=== PATIENT | female | born 1965 | race Caucasian/White ===

== ENCOUNTER 2023-11-15 15:55 | Emergency (ER) | payer OTHER, SELFPAY ==
--- NOTE | ~2023-11-15 | CT_ITS ---
EXAMINATION: CT brain wo con DATE: 11/15/2023 19:01 INDICATION: Hallucinations. TECHNIQUE: Computed tomography (CT) of the head was performed without intravenous contrast. The mA wa s adjusted according to patient size. Iterative reconstruction technique was employed. The dose-lengt h product was 605.33 mGy-cm. COMPARISON: Head CT 10/10/18 FINDINGS: There is no intracranial hemorrhage, acute infarction, or abnormal intracranial mass lesion . The ventricles are normal in size. The orbits are normal. There is mucosal thickening in the parana marco sinuses. There is thickening and sclerosis of the pan of left maxillary sinus, consistent with chronic sinusitis. The mastoid air cells are normal. IMPRESSION: 1. Normal brain. 2. Chronic sinusitis. Reviewed, dictated and finalized at location E.
--- NOTE | ~2023-11-15 | XR_ITS ---
EXAMINATION: XR chest 2V DATE: 11/15/2023 18:44 INDICATION: Fever. Leukocytosis. TECHNIQUE: Frontal and lateral views of the chest were obtained. COMPARISON: Chest 2 views 11/25/2009 FINDINGS: There is no pneumonia, pleural effusion, or pneumothorax. The heart size is normal. There i s mild chronic anterior wedging of T12-L2 vertebral bodies. IMPRESSION: 1. No acute cardiopulmonary disease. Reviewed, dictated and finalized at location E.
[2023-11-15 15:58] VITALS: BP 115/73; PULSE 96; RESP 16; TEMP 36.6; O2SAT 100
[2023-11-15 16:31] LABS: Basophils Absolute Auto 0.1 K/mm3 (0.0-0.1); Basophils Percent Auto 0.3 % (0.2-1.2); Eosinophils Absolute Auto 0.1 K/mm3 (0-0.3); Eosinophils Percent Auto 0.9 % (0-4.4); Hematocrit 44.5 % (37.0-47.0); Hemoglobin 15.4 g/dL (12.0-15.0); Immature Granulocyte Absolute 0.08 K/mm3 (0.00-0.031); Immature Granulocyte Percent A 0.6 % (0-0.5); Lymphocytes Absolute Auto 2.94 K/mm3 (0.9-3.2); Lymphocytes Percent Auto 20.4 % (18.3-44.2); Mean Corpuscular HGB Conc 34.6 g/dl (32-36); Mean Corpuscular Hemoglobin 33.2 pg (26-34); Mean Corpuscular Volume 95.9 fl (80-100); Mean Platelet Volume 10.7 fl (7.4-10.4); Monocytes Absolute Auto 1.5 K/mm3 (0.1-0.6); Monocytes Percent Auto 10.3 % (2.6-8.5); Neutrophils Absolute Auto 9.7 K/mm3 (1.3-6.7); Neutrophils Percent Auto 67.5 % (45.5-73.1); Platelet Count Result 330 k/mm3 (150-375); Red Blood Count 4.64 M/mm3 (4.2-5.4); Red Cell Distribution Width 13.4 % (11.5-14.5); White Blood Count 14.4 K/mm3 (4.5-10.0)
[2023-11-15 16:41] LABS: Ethanol < 10 mg/dL (<10)
[2023-11-15 16:42] LABS: Alanine Aminotransferase 22 U/L (6-35); Albumin Level 5.3 g/dL (3.5-5.1); Alkaline Phosphatase 109 U/L (38-126); Anion Gap 18 mmol/L (4-12); Aspartate Amino Transferase 29 U/L (14-36); Bilirubin,Total 0.9 mg/dL (0.2-1.3); Blood Urea Nitrogen 18 mg/dL (7-17); Calcium 10.3 mg/dL (8.4-10.2); Carbon Dioxide 18 mmol/L (22-30); Chloride 106 mmol/L (98-107); Estimated CRCL calculation 39 ml/min; Estimated Glomerular Filt Rate 36; Glucose 103 mg/dL (65-110); Potassium 3.6 mmol/L (3.4-5.0); Sodium 142 mmol/L (137-145)
[2023-11-15 16:43] LABS: Acetaminophen < 10 ug/mL (10-30); Salicylate 4.6 mg/dL (2-20)
[2023-11-15 17:55] VITALS: BP 120/85; PULSE 92; RESP 18; O2SAT 97
--- NOTE | 2023-11-15 18:19 | PC.NURSE ---
patient attempted to give urine sample without success. Declines straight cath.
--- NOTE | 2023-11-15 18:23 | ED.PSYCH ---
HPI - Psych General Chief Complaint: Psychiatric Symptoms <Daphney Cavanaugh PA-C - Last Filed: 11/18/23 09:39> Stated Complaint: hallucinations <SOLEDAD Browning Last Filed: 11/18/23 09:39> Time Seen by Provider: 11/15/23 18:17 <Daphney Cavanaugh PA-C - Last Filed: 11/18/23 09:39> Source: patient <SOLEDAD Browning Last Filed: 11/18/23 09:39> Mode of arrival: EMS <SOLEDAD Browning Last Filed: 11/18/23 09:39> Limitations: no limitations <SOLEDAD Browning Last Filed: 11/18/23 09:39> History of Present Illness HPI Narrative: This is a 58 year old female that presents to the ER for hallucinations. Reports she has been hearing people in her attack and people are moving her car. Reports this has been ongoing over the last year. Denies any history of psychiatric problems or previous hospitalizations. She is a disabled . Reports she has had fevers, cough, congestion and diarrhea the last couple of days. <SOLEDAD Browning Last Filed: 11/18/23 09:39> Related Data Allergies/Adverse Reactions: Allergies Allergy/AdvReac Type Severity Reaction Status Date / Time No Known Allergies Allergy Verified 11/15/23 17:57 <Daphney Cavanaugh PA-C - Last Filed: 11/18/23 09:39> Review of Systems Review of Systems: CONSTITUTIONAL: Reports fever ENT: Reports rhinorrhea, congestion, sore throat, and otalgia. CARDIOVASCULAR: Denies chest pain RESPIRATORY: Reports cough. Denies dyspnea. GASTROINTESTINAL: Reports diarrhea. Denies nausea and vomiting. PSYCHIATRIC: Denies anxiety or depression. <SOLEDAD Browning Last Filed: 11/18/23 09:39> All systems reviewed & are unremarkable except as noted in HPI and below <SOLEDAD Browning Last Filed: 11/18/23 09:39> [facility] Past Medical History Medical History: Medical History (Updated 11/17/23 @ 00:00 by Background Daemon) History of atrial fibrillation History of hypertension History of hypothyroidism <Daphney Cavanaugh PA-C - Last Filed: 11/18/23 09:39> Surgical History Surgical History: Surgical History (Updated 11/15/23 @ 18:27 by Daphney Cavanaugh PA-C) History of cardiac radiofrequency ablation <Daphney Cavanaugh PA-C - Last Filed: 11/18/23 09:39> Social History Social History: Social History (Updated 11/15/23 @ 18:26 by Daphney Cavanaugh PA-C) Smoking status: Current every day smoker Alcohol intake: current Substance use: current Substance use type: unknown <Daphney Cavanaugh PA-C - Last Filed: 11/18/23 09:39> Exam Narrative: GENERAL: Well-appearing, well-nourished, and in no acute distress. HEAD: Normocephalic, atraumatic. EYES: PERRLA and EOMI. ENT: Nares clear, no rhinorrhea or epistaxis. Mucous membranes moist. Oropharynx without tonsillar hypertrophy exudate or other lesions. Bilateral TMs pearly calix non-bulging NECK: Supple. No adenopathy or masses. No JVD CHEST: Clear to auscultation. No respiratory distress. No wheezes rales or rhonchi HEART: Regular rate and rhythm. No murmur heard. Normal peripheral pulses. EXTREMITIES: Normal range of motion. No edema. SKIN: Warm, dry, no rash. NEURO: No focal deficits. Alert and oriented x3. Cranial nerves 2-12 grossly intact PSYCH: Normal mood and affect <Daphney Cavanaugh PA-C - Last Filed: 11/18/23 09:39> Course Course Emergency Course: Repeat metabolic panel with improvement after hydration, with anion gap that is closed. Patient is medically clear for evaluation by crisis Patient evaluated by crisis, will be involuntarily placed <Daphney Cavanaugh PA-C - Last Filed: 11/18/23 09:39> APPEALS OFFICER/PA Physician Supervision For this patient encounter, I reviewed the APPEALS OFFICER or PA documentation, treatment plan, and medical decision making; and I had [id number] time with this patient. <David Garza MD - Last Filed: 11/16/23 04:35> Vital Signs Vital signs: Vital Signs Temperature 97.8 F 07/1
[2023-11-15] MEDS: SODIUM CHLORIDE 0.9% IV 1,000 ML 999 ML IV CONT (18:30)
[2023-11-15 18:41] LABS: Total Triiodothyronine (T3) 1.64 NG/ML (0.97-1.69)
[2023-11-15 18:49] LABS: Creatine Kinase 280 U/L (30-135)
[2023-11-15 18:51] LABS: Influenza A QL RT-PCR Negative (Negative); Influenza B QL RT-PCR Negative (Negative); RSV RNA, RT-PCR Negative (Negative); SARS-CoV-2 RNA PCR Negative (Negative)
--- NOTE | 2023-11-15 19:15 | PC.NURSE ---
this rn assumed care of patient. this rn took patient report from EMMANUEL Baker.
[2023-11-15] MEDS: LACTATED RINGERS 1,000 ML 999 ML IV CONT (20:10)
[2023-11-15 20:13] VITALS: BP 130/85; PULSE 70; RESP 18; O2SAT 100
--- NOTE | 2023-11-15 20:15 | PC.NURSE ---
this rn went to initiate another L of fluids for patient. pt was showing this rn her phone stating, look at these people in my house they are everywhere, tell me you can see them . this rn explained to patient that I could not see them. pt then stated, what the fuck do you mean you cannot see them. I am leaving fuck this place . This rn attempted to explain to patient that the next step for patient was to collect a urine sample. Pt stated I have tried to go 3 times and can't go, what the fuck do you want me to do . This rn explained to patient that the fluids will hopefully help her be able to use the bathroom. pt verbalized understanding. pt then allowed this rn to get a new set of vital signs.
[2023-11-15 21:26] LABS: Amphetamine Screen Urine Negative (Negative); Barbiturate Screen Urine Negative (Negative); Benzodiazepines Screen Urine Negative (Negative); Cannabinoid Screen Urine Negative (Negative); Cocaine Screen Urine Positive (Negative); Methadone Screen Urine Negative (Negative); Opiate Screen Urine Negative (Negative); Phencyclidine Screen Urine Negative (Negative)
[2023-11-15 21:48] LABS: Appearance Urine Clear (Clear); Bacteria Urine Rare /hpf; Bilirubin Urine Negative (Negative); Blood Urine Negative (Negative); Color Urine Yellow (Yellow); Glucose Urine UA Negative (Negative); Ketones Urine Negative (Negative); Leukocyte Esterase Ur Trace LEU/UL (Negative); Need Manual Microscopic Reviewed; Nitrate Urine Negative (Negative); Non Pathogenic Casts 0-2; Protein Urine Negative (Negative); RBC Urine 0-2 /hpf (0-2); Specific Grav Ur 1.004 (1.001-1.035); Squamous Epithelial Cell Urine Few /hpf (Few); Urobilinogen Urine 0.2 mg/dL (<2.0); WBC Urine 0-5 /hpf (0-3)
[2023-11-15 21:51] LABS: Add Urine Microscopic? YES
[2023-11-15 22:03] LABS: Anion Gap 11 mmol/L (4-12); Blood Urea Nitrogen 18 mg/dL (7-17); Calcium 9.3 mg/dL (8.4-10.2); Carbon Dioxide 20 mmol/L (22-30); Chloride 109 mmol/L (98-107); Estimated CRCL calculation 49 ml/min; Estimated Glomerular Filt Rate 46; Glucose 105 mg/dL (65-110); Potassium 3.4 mmol/L (3.4-5.0); Sodium 140 mmol/L (137-145)
--- NOTE | 2023-11-15 23:11 | PC.NURSE ---
sitter continued at bedside due to elopement risk per [facility]rera [place].
--- NOTE | 2023-11-15 23:15 | PC.NURSE ---
Spoke with Chelly Chain Testing Machine Operator regarding Clear and Present Danger.
--- NOTE | 2023-11-16 01:37 | ECG_ITS ---
Test Date: 2023-11-16 01:43:11 Measurements Intervals [place] Rate: 67 P: 69 AL: 174 QRS: -57 QRSD: 152 T: 140 QT: 451 QTc: 476 Interpretive Statements SINUS RHYTHM LEFT AXIS DEVIATION LEFT BUNDLE BRANCH BLOCK ABNORMAL ECG No previous ECG available for comparison Electronically Signed On 11-16-2023 07:05:07 CDT by Rupert Mohamud D.O.
--- NOTE | 2023-11-16 01:50 | PC.NURSE ---
EKG completed per [facility] request. EKG and physician's Cert of Involuntary faxed to [phone] per [facility] request.
--- NOTE | 2023-11-16 02:11 | PC.NURSE ---
[facility] refused patient due to having bundle branch block .
--- NOTE | 2023-11-16 02:23 | PC.NURSE ---
This rn spoke with Bayron Bowers from [facility] in [place], [place] to give nurse to nurse report.
--- NOTE | 2023-11-16 02:33 | PC.NURSE ---
this rn spoke with [facility] who denied patient due to insurance. RN stated, [facility], before we can check if patient qualifies .
--- NOTE | 2023-11-16 02:51 | PC.NURSE ---
[facility] accepted, under Dr Melissa. Pt cannot arrive until 1pm tomorrow.
--- NOTE | 2023-11-16 09:11 | PC.NURSE ---
pt woke up and requesting SLN be removed. Pt asked plans and informed waiting on transport to [place]. Pt became agitated and stated I'm not leaving the area. Pt then called friend on phone and calmed down. Breakfast tray ordered.
[2023-11-16 09:12] VITALS: BP 126/80; PULSE 96; RESP 16; TEMP 36.6; O2SAT 100
[2023-11-16 12:00] VITALS: BP 118/70; PULSE 84; RESP 16; TEMP 36.6; O2SAT 100
== END 2023-11-16 12:24 ==
PROVIDERS: Emergency Medicine; Emergency Provider Physician Assistant
DX: R44.1 Visual hallucinations (principal); Z11.52 Encounter for screening for COVID-19; I10 Essential (primary) hypertension; I48.91 Unspecified atrial fibrillation; E03.9 Hypothyroidism, unspecified; F17.200 Nicotine dependence, unspecified, uncomplicated; J32.9 Chronic sinusitis, unspecified; I44.7 Left bundle-branch block, unspecified
CPT/HCPCS: 36415; 70450; 71046; 80048; 80053; 80307; 81001; 81025; 82550; 84439; 84443; 84480; 85025; 87637; 93005; 96360; 96361; 99285; J7030; J7120